=== PATIENT | female | born 1960 | race Caucasian/White ===

== ENCOUNTER 2017-01-01 17:40 | Emergency (ER) | payer MEDICAID ==
[~2017-01-01] VITALS: Ht 160 cm; Wt 84.7 kg
[~2017-01-01 17:40] MED LIST: BACT800T5 PO; CLIN1CAP5 PO; ZOLO50TA PO
[2017-01-01 17:46] VITALS: BP 174/70; PULSE 106; RESP 16; TEMP 97.6; O2SAT 99
[2017-01-01] MEDS ORDERED: SODIUM CHLOR 0.9% 1000 ML INJ 1,000 ML IV ONE (18:08)
[2017-01-01] MEDS ORDERED: METOCLOPRAMIDE HCL 10 MG/2 ML VIAL IVP ONE (18:15)
[2017-01-01] MEDS ORDERED: DEXAMETHASONE SOD PHOS 20 MG/5 ML VIAL IV PUSH ONE (18:15)
[2017-01-01] MEDS ORDERED: SODIUM CHLORIDE 0.9% FLUSH 10 ML FLUSH IVF PRN (18:15)
[2017-01-01] MEDS ORDERED: diphenhydrAMINE HCL 50 MG/ML VIAL IV PUSH ONE (18:15)
--- NOTE | 2017-01-01 18:19 | PD ---
HPI Chief Complaint: Headache Time Seen by Provider: 17:57 Travel History International Travel<30 days: No Contact w/Intl Traveler<30days: No Traveled to known affect area: No History of Present Illness HPI Patient is a 56 year old female who presents to the ER with c/o of typical migraine headache. Reports that she began to have a headache today after she Stark Acted her daughter today due to drug abuse. Reports that "it's been a really stressful morning." Reports that she began to have a frontal headache starting around 10AM. Reports that she is feeling nauseous with her symptoms. Reports no photophobia. Reports typical migraine headache and denies any trauma to her head. Reports that she normally takes imitrex for her migraines but ran out of them. Reports "I am just stressed out and I want to get help for my daughter and I don't know what else to do for her." Patient denies any fevers or chills, denies any chest pain or shortness of breath. Patient with no other complaints. 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) Neurologic: No Psychiatric: Yes (DEPRESSION) Reproductive: No Respiratory: No Immunizations Current: No Thyroid Disease: No : 1 Para: 1 Miscarriage: 0 : 0 Ovarian Cysts: Yes (HAD OVARY REMOVED WITH DERMOID CYST) Tubal Ligation: Yes Past Surgical History Abdominal Surgery: No Body Medical Devices: BREAST IMPLANTS Cardiac Surgery: No Ear Surgery: No Endocrine Surgery: No Eye Surgery: No Genitourinary Surgery: No Gynecologic Surgery: Yes (TUBAL, RIGHT OOPHORECTOMY,TOTAL HYSTERECTOMY) Hysterectomy: Yes Joint Replacement: Yes (LEFT HIP) Oral Surgery: No Thoracic Surgery: Yes (BILATERAL MASTECTOMY WITH MULTIPLE RECONSTRUCTIVE SURGERIES) Other Surgery: Yes (10/07- BILATERAL MASTECTOMY WITH EXPANDERS) Social History Alcohol Use: No Tobacco Use: No Substance Use: No Allergies-Medications (Allergen,Severity, Reaction): Coded Allergies: No Known Allergies (Verified , 01/01/17) Reported Meds & Prescriptions Reported Meds & Active Scripts Active No Active Prescriptions or Reported Medications Review of Systems General / Constitutional: No: Fever Eyes: No: Diploplia, Blurred Vision, Photophobia, Drainage, Visual changes HENT: Positive: Headaches, No: Vertigo, Lightheadedness Cardiovascular: No: Chest Pain or Discomfort Respiratory: No: Shortness of Breath Gastrointestinal: Positive: Nausea, Vomiting, No: Abdominal Pain Genitourinary: No: Dysuria Musculoskeletal: No: Pain Skin: No Rash Neurologic: Positive: Headache, No: Weakness Psychiatric: No: Depression Endocrine: No: Polydipsia Hematologic/Lymphatic: No: Easy Bruising Physical Exam Narrative GENERAL: Mild distress SKIN: Focused skin assessment warm/dry. HEAD: Atraumatic. Normocephalic. EYES: Pupils equal and round. No scleral icterus. No injection or drainage. ENT: No nasal bleeding or discharge. Mucous membranes pink and moist. NECK: Trachea midline. No JVD. CARDIOVASCULAR: Regular rate and rhythm. No murmur appreciated. RESPIRATORY: No accessory muscle use. Clear to auscultation. Breath sounds equal bilaterally. GASTROINTESTINAL: Abdomen soft, non-tender, nondistended. Hepatic and splenic margins not palpable. MUSCULOSKELETAL: No obvious deformities. No clubbing. No cyanosis. No edema. NEUROLOGICAL: Awake and alert. No obvious cranial nerve deficits. Motor grossly within normal limits. Normal speech. CN 2-12 grossly intact with no neurological deficits PSYCHIATRIC: anxious mood, depression, denies si/hi Data Data Last Documented VS Vital Signs Date Time Temp Pulse Resp B/P Pulse Ox O2 Delivery O2 Flow Rate FiO2 01/01/17 19:40 80 14 139/71 98 Room Air 01/01/17 17:46 97.6 Orders Complete Blood Count With Diff (01/01/17 18:08) Basic Metabolic Panel (Bmp) (01/01/17 18:08) Ecg Monitoring (01/01/17 18:08) Iv Access Insert/Monitor (01/01/17 18:08) Oximetry (01/01/17 18:08) Sodium Chloride 0.9% Flush (Ns Flush) (01/01/17 18:15) Metoclopramide Inj (Reglan Inj) (01/01/17 18:15) Sodium Chlor 0.9% 1000 Ml Inj (Ns 1000 M (01/01/17 18:08) Diphenhydramine Inj (Benadryl Inj) (01/01/17 18:15) Dexamethasone Inj (Decadron Inj) (01/01/17 18:15) Labs Laboratory Tests Test 01/01/17 18:30 White Blood Count 8.0 TH/MM3 Red Blood Count 4.54 MIL/MM3 Hemoglobin 12.8 GM/DL Hematocrit 38.0 % Mean Corpuscular Volume 83.6 FL Mean Corpuscular Hemoglobin 28.1 PG Mean Corpuscular Hemoglobin 33.6 % Concent Red Cell Distribution Width 13.6 % Platelet Count 326 TH/MM3 Mean Platelet Volume 9.0 FL Neutrophils (%) (Auto) 68.7 % Lymphocytes (%) (Auto) 22.6 % Monocytes (%) (Auto) 5.9 % Eosinophils (%) (Auto) 2.4 % Basophils (%) (Auto) 0.4 % Neutrophils # (Auto) 5.5 TH/MM3 Lymphocytes # (Auto) 1.8 TH/MM3 Monocytes # (Auto) 0.5 TH/MM3 Eosinophils # (Auto) 0.2 TH/MM3 Basophils # (Auto) 0.0 TH/MM3 CBC Comment DIFF FINAL Differential Comment Sodium Level 140 MEQ/L Potassium Level 3.7 MEQ/L Chloride Level 107 MEQ/L Carbon Dioxide Level 25.4 MEQ/L Anion Gap 8 MEQ/L Blood Urea Nitrogen 12 MG/DL Creatinine 0.96 MG/DL Estimat Glomerular Filtration 60 ML/MIN Rate Random Glucose 89 MG/DL Calcium Level 10.3 MG/DL MDM Medical Decision Making Medical Screen Exam Complete: Yes Emergency Medical Condition: Yes Interpretation(s) Vital Signs Date Time Temp Pulse Resp B/P Pulse Ox O2 Delivery O2 Flow Rate FiO2 01/01/17 17:46 97.6 106 16 174/70 99 Differential Diagnosis Differential includes migraine headache, cephalgia, anxiety reaction, depression , electrolyte abnormality Narrative Course 56-year-old female who presents to emergency room with complaints of typical migraine headache started this morning around 10 AM. Patient reports that her headache associated with stress as she had to call the police on her daughter and have her Stark Acted due to drug abuse. Reports that her headache today is typical for her normal symptoms, she normally takes Imitrex but has run out of this medications On evaluation, patient with normal neuro evaluation. There are no cranial nerve deficits. Plan to obtain basic blood work, will give migraine cocktail. Laboratory Tests Test 01/01/17 18:30 White Blood Count 8.0 TH/MM3 (4.0-11.0) Red Blood Count 4.54 MIL/MM3 (4.00-5.30) Hemoglobin 12.8 GM/DL (11.6-15.3) Hematocrit 38.0 % (35.0-46.0) Mean Corpuscular Volume 83.6 FL (80.0-100.0) Mean Corpuscular Hemoglobin 28.1 PG (27.0-34.0) Mean Corpuscular Hemoglobin 33.6 % Concent (32.0-36.0) Red Cell Distribution Width 13.6 % (11.6-17.2) Platelet Count 326 TH/MM3 (150-450) Mean Platelet Volume 9.0 FL (7.0-11.0) Neutrophils (%) (Auto) 68.7 % (16.0-70.0) Lymphocytes (%) (Auto) 22.6 % (9.0-44.0) Monocytes (%) (Auto) 5.9 % (0.0-8.0) Eosinophils (%) (Auto) 2.4 % (0.0-4.0) Basophils (%) (Auto) 0.4 % (0.0-2.0) Neutrophils # (Auto) 5.5 TH/MM3 (1.8-7.7) Lymphocytes # (Auto) 1.8 TH/MM3 (1.0-4.8) Monocytes # (Auto) 0.5 TH/MM3 (0-0.9) Eosinophils # (Auto) 0.2 TH/MM3 (0-0.4) Basophils # (Auto) 0.0 TH/MM3 (0-0.2) CBC Comment DIFF FINAL Differential Comment Sodium Level 140 MEQ/L (136-145) Potassium Level 3.7 MEQ/L (3.5-5.1) Chloride Level 107 MEQ/L (98-107) Carbon Dioxide Level 25.4 MEQ/L (21.0-32.0) Anion Gap 8 MEQ/L (5-15) Blood Urea Nitrogen 12 MG/DL (7-18) Creatinine 0.96 MG/DL (0.50-1.00) Estimat Glomerular Filtration 60 ML/MIN (>89) Rate Random Glucose 89 MG/DL (74-106) Calcium Level 10.3 MG/DL (8.5-10.1) Patient reevaluated, patient feeling much better at this time. Patient reports complete resolution of symptoms. Plan to discharge patient with outpatient follow-up with her primary care doctor. Patient will return to the emergency room symptoms return, she will return to emergency room as needed. Patient happy with plan of care. Diagnosis Primary Impression: Cephalgia Qualified Code: R51 - Acute nonintractable headache, unspecified headache type Patient Instructions: General Instructions Additional Instructions: Please follow-up with your primary care doctor Return to emergency room as needed or if symptoms return Scripts No Active Prescriptions or Reported Meds Disposition: 01 DISCHARGE HOME Condition: Stable Toshia Mooney DO Jan 01, 2017 18:18 Toshia Mooney DO Jan 01, 2017 18:18
[2017-01-01 18:30] VITALS: O2SAT 98
[2017-01-01 18:41] LABS: AUTOMATED NEUTROPHIL # 5.5 TH/MM3 (1.8-7.7); BASOPHIL % 0.4 % (0.0-2.0); EOSINOPHIL # 0.2 TH/MM3 (0-0.4); EOSINOPHIL % 2.4 % (0.0-4.0); LYMPH % 22.6 % (9.0-44.0); LYMPHOCYTE # 1.8 TH/MM3 (1.0-4.8); MEAN CELL VOLUME 83.6 FL (80.0-100.0); MEAN CORPUSCULAR HEMOGLOBIN 28.1 PG (27.0-34.0); MEAN CORPUSCULAR HGB CONC 33.6 % (32.0-36.0); MONO % 5.9 % (0.0-8.0); NEUT % 68.7 % (16.0-70.0); PLATELET COUNT 326 TH/MM3 (150-450); RED BLOOD COUNT 4.54 MIL/MM3 (4.00-5.30); RED CELL DISTRIBUTION WIDTH 13.6 % (11.6-17.2)
[2017-01-01 18:49] LABS: POTASSIUM 3.7 MEQ/L (3.5-5.1)
[2017-01-01 18:53] LABS: BICARBONATE 25.4 MEQ/L (21.0-32.0)
[2017-01-01 19:05] LABS: HEMO FLAGS DIFF FINAL
[2017-01-01 19:40] VITALS: BP 139/71; PULSE 80; RESP 14; O2SAT 98
== END 2017-01-01 20:01 | disposition home or self-care (01) ==
LOC: PHED 17:40
DX: R51 Headache (principal); M79.7 Fibromyalgia
CPT/HCPCS: 80048; 85025; 96361; 96374; 96375; 99284; J1100; J1200; J2765; J7030